=== PATIENT | male | born 1955 | race Caucasian/White ===

== ENCOUNTER 2024-07-10 10:33 | Inpatient (IN) | payer MEDICARE, MEDICAID ==
[~2024-07-10] VITALS: Ht 152.4 cm; Wt 71.2 kg
[2024-07-10 12:58] LABS: TROPONIN I HIGH SENSITIVITY 6 ng/L (3.0-53)
[2024-07-10] MEDS: ENOXAPARIN 60MG/0.6ML SYR SUBCUT ONE (13:16)
[2024-07-10] MEDS: ASPIRIN 325MG TABLET PO ONE (13:16)
[2024-07-10] MEDS ORDERED: LIDOCAINE HCL 1% 20ML VIAL ONE (14:07)
[2024-07-10] MEDS ORDERED: HEPARIN 1000 UNITS/ML 10ML ONE (14:07)
[2024-07-10] MEDS ORDERED: IODIXANOL 320MG/ML 100 ML BOTTLE IV ONE (14:07)
[2024-07-10] MEDS ORDERED: MIDAZOLAM HCL 2 MG/2 ML VIAL ONE (14:13)
[2024-07-10] MEDS ORDERED: FENTANYL CITRATE/PF 50MCG/ML 2ML VIAL ONE (14:13)
[2024-07-10] MEDS ORDERED: ACETAMINOPHEN 325MG TABLET PO PRN (15:15)
[2024-07-10] MEDS ORDERED: ATROPINE SULFATE 1MG/10ML SYR IV PRN (15:15)
[2024-07-10 18:10] LABS: BASOPHILS % 0.3 % (0.0-2.0); DIFFERENTIAL COMMENT 0; EOSINOPHILS % 1.1 % (0.0-5.0); HEMOGLOBIN. 14.8 g/dL (14.0-18.0); LYMPHOCYTES % 33.9 % (20.0-50.0); MEAN CORPUSCULAR HEMOGLOBIN 32.5 pg (28.0-32.0); MEAN CORPUSCULAR HGB CONC 32.1 g/dL (31.0-37.0); MEAN CORPUSCULAR VOLUME 101.2 fL (80.0-94.0); MEAN PLATELET VOLUME 10.4 fl (7.4-10.4); MONOCYTES % 6.5 % (2.0-8.0); NEUTROPHILS % 58.2 % (40.0-76.0); PLATELET 133 x1000/uL (130-400); RED BLOOD CELL COUNT 4.54 mill/uL (4.7-6.1); RED CELL DISTRIBUTION WIDTH 14.3 % (11.6-14.6); WHITE BLOOD COUNT 8.3 x1000/uL (4.5-11.0)
[2024-07-10 18:19] LABS: CHLORIDE 106 mEq/L (98-107); POTASSIUM 3.8 mEq/L (3.5-5.1); SODIUM 140 mEq/L (136-145)
[2024-07-10 18:20] LABS: CARBON DIOXIDE 26 mEq/L (21-32)
[2024-07-10 18:21] LABS: CALCIUM 8.7 mg/dL (8.7-10.4)
[2024-07-10 18:25] LABS: CREATININE 1.1 mg/dL (0.6-1.3); GLUCOSE 138 mg/dL (70-105)
[2024-07-10 18:26] LABS: LDL CHOLESTEROL 122 mg/dL (5-100); PROTHROMBIN TIME 10.5 sec (9.6-11.0); TRIGLYCERIDE 78 mg/dL (0-150); TROPONIN I HIGH SENSITIVITY 7 ng/L (3.0-53); UREA NITROGEN BLOOD 19 mg/dL (9-23)
[2024-07-10 18:28] LABS: CHOLESTEROL 187 mg/dL (<200); HDL CHOLESTEROL 47 mg/dL (>55)
[2024-07-10 20:00] VITALS: BP 155/72; PULSE 58; RESP 20; TEMP 36.7; TEMP 37.2; O2SAT 97
[2024-07-11] VITALS: BP 135/73; PULSE 53; RESP 20; TEMP 37.1; O2SAT 97
[2024-07-11 04:00] VITALS: BP 121/70; PULSE 56; RESP 20; TEMP 36.8; O2SAT 97
[2024-07-11 08:00] VITALS: BP 119/71; PULSE 62; RESP 18; TEMP 36.4; O2SAT 95
[2024-07-11 12:00] VITALS: BP 126/74; PULSE 68; RESP 18; TEMP 36.6; O2SAT 96
[2024-07-11 15:33] LABS: *AMPHETAMINES SCREEN URINE NEGATIVE (NEGATIVE); *BARBITURATES SCREEN URINE NEGATIVE (NEGATIVE); *BENZODIAZEPINES SCREEN URINE NEGATIVE (NEGATIVE); *COCAINE SCREEN URINE NEGATIVE (NEGATIVE); CANNABINOID URINE SCREEN NEGATIVE (NEGATIVE); ECSTASY MDMA SCREEN URINE NEGATIVE (NEGATIVE); METHADONE URINE SCREEN NEGATIVE (NEGATIVE); OPIATES URINE SCREEN NEGATIVE (NEGATIVE); PHENCYCLIDINE URINE SCREEN NEGATIVE (NEGATIVE)
[2024-07-11 15:55] VITALS: BP 135/77; PULSE 73; RESP 18; TEMP 35.6; O2SAT 94
[2024-07-11 17:22] VITALS: BP 135/77; PULSE 73; TEMP 96.1; O2SAT 94
== END 2024-07-11 19:30 | disposition home or self-care (01) | DRG 282 ==
LOC: ER 10:33 → 7WST 20:10
PROVIDERS: ADMIT Internal Medicine; ATTEND Internal Medicine
PROC: 4A023N7 Measurement of Cardiac Sampling and Pressure, Left Heart, Percutaneous Approach (ICD-10-PCS; principal; 2024-07-10)
PROC: B211YZZ Fluoroscopy of Multiple Coronary Arteries using Other Contrast (ICD-10-PCS; 2024-07-10)
PROC: B215YZZ Fluoroscopy of Left Heart using Other Contrast (ICD-10-PCS; 2024-07-10)
DX: I21.4 Non-ST elevation (NSTEMI) myocardial infarction (principal); I10 Essential (primary) hypertension
CPT/HCPCS: 36415; 71045; 80048; 80061; 80305; 83036; 83735; 84484; 85025; 93005; 93306; 93458; 99291; C1887; C1893; J1644; J1650; J2250; J3010; J3490; Q9967